=== PATIENT | male | born 1995 | race Caucasian/White ===

== ENCOUNTER 2018-01-30 10:37 | Emergency (ER) | payer OTHER ==
--- NOTE | 2018-01-30 11:35 | EDPHY ---
H & P Stated Complaint: swelling eyes and rash to genitals/[place] Time Seen by Provider: 01/30/18 11:17 HPI/ROS: CHIEF COMPLAINT: Allergic reaction HISTORY OF PRESENT ILLNESS: 22-year-old male presents with an itchy rash and swelling. He is visiting from out of town and this morning he awoke with an itchy rash and swelling. Yesterday he was on the [place] path, but was not in the weeds/grass. Last night he had some itchiness, but no rash. He awoke this morning with eyelid swelling and an itchy diffuse rash. Also has swelling and rash to groin. No shortness of breath or dizziness. REVIEW OF SYSTEMS: complete 10 point ROS negative except at noted in the HPI - Personal History Current Tetanus/Diphtheria Vaccine: Yes - Medical/Surgical History Hx Asthma: No Hx Chronic Respiratory Disease: No Hx Diabetes: No Hx Cardiac Disease: No Hx Renal Disease: No Hx Cirrhosis: No Hx Alcoholism: No Hx HIV/AIDS: No Hx Splenectomy or Spleen Trauma: No Other PMH: denies - Social History Smoking Status: Never smoked Alcohol Use: Sober - Physical Exam Exam: General Appearance: Alert, pleasant Eyes: Pupils equal and round, bilateral periorbital swelling ENT, Mouth: Mucous membranes moist, no oral swelling Neck: Normal inspection, no stridor Respiratory: Lungs are clear to auscultation, no wheezing Cardiovascular: Regular rate and rhythm Genitourinary: Scrotal swelling, rash over scrotum and groin Neurological: A&O, nonfocal, normal gait Skin: patchy erythema, some macules, mainly confluent right facial, lower abd, groin, no rash on the lower extremities Extremities: No swelling Psychiatric: Mood and affect normal Constitutional: Initial Vital Signs Temperature (C) 36.8 C 01/30/18 10:41 Heart Rate 88 01/30/18 10:41 Respiratory Rate 18 01/30/18 10:41 Blood Pressure 114/82 H 01/30/18 10:41 O2 Sat (%) 96 01/30/18 10:41 O2 Delivery Mode Room Air Allergies/Adverse Reactions: No Known Allergies Allergy (Unverified 01/30/18 11:33) Home Medications: Medication Instructions Recorded predniSONE 60 mg PO DAILY #15 tab 01/30/18 Medical Decision Making ED Course/Re-evaluation: This pt presents with contact dermatitis. Benadryl and prednisone given. Warning signs discussed, will return for worsening sx, any concerns. Differential Diagnosis: Differential diagnosis includes though it is not limited to laryngeal edema, bronchospasm, hypotension, angioedema. - Data Points Medications Given: Discontinued Medications Diphenhydramine HCl (Benadryl) 25 mg PO EDNOW ONE Stop: 01/30/18 11:39 Last Admin: 01/30/18 11:50 Dose: 25 mg Diphenhydramine HCl (Benadryl) 50 mg PO EDNOW ONE Stop: 01/30/18 11:52 Last Admin: 01/30/18 11:54 Dose: 25 mg Prednisone (Prednisone) 60 mg PO EDNOW ONE Stop: 01/30/18 11:38 Last Admin: 01/30/18 11:50 Dose: 60 mg Departure - Departure Disposition: Home, Routine, Self-Care Clinical Impression: Contact dermatitis Qualifiers: Contact dermatitis type: allergic Contact dermatitis trigger: unspecified trigger Qualified Code(s): L23.9 - Allergic contact dermatitis, unspecified cause Condition: Good Instructions: General Allergic Reaction (ED), Contact Dermatitis (ED) Additional Instructions: Take Claritin in the morning and Benadryl at night while the rash persists. Take prednisone as prescribed. Return for worsening symptoms or any concerns. Referrals: Dorie Samuels MD [[facility] [place]] - 2-3 days, if not improved Prescriptions: predniSONE 60 mg PO DAILY #15 tab
[2018-01-30] MEDS ORDERED: predniSONE 20 MG TAB PO ONE (11:37)
[2018-01-30] MEDS ORDERED: diphenhydrAMINE 25 MG CAP PO ONE ×3 (11:38→11:51)
[2018-01-30 11:54] VITALS: BP 138/77
== END 2018-01-30 11:55 | disposition home or self-care (01) ==
DX: L23.9 Allergic contact dermatitis, unspecified cause (principal)
CPT/HCPCS: J7512

== ENCOUNTER 2018-02-04 09:49 | Emergency (ER) | payer OTHER ==
--- NOTE | 2018-02-04 10:01 | EDPHY ---
H & P Time Seen by Provider: 02/04/18 10:00 HPI/ROS: CHIEF COMPLAINT: Continued rash HISTORY OF PRESENT ILLNESS: 22-year-old immunocompetent male seen emergency department originally 6 days ago after he awoke with itching rash in swelling. At that time he was started on prednisone, suspected contact dermatitis. He presents to the ER stating that he completed his course of prednisone but symptoms continue. They have not exacerbated. He denies new symptoms. He denies: Mucous membrane involvement, or pharyngeal involvement, GI complaints, ocular complaints, chest pain, dyspnea, nausea, vomiting, diarrhea, discoloration of urine, myalgias, arthralgias, fatigue, weakness, gait instability, photophobia REVIEW OF SYSTEMS: A ten point review of systems was performed and is negative with the exception of the items mentioned in the HPI PAST MEDICAL & SURGICAL HISTORY: No pertinent medical or surgical history SOCIAL HISTORY: Visiting from out of town. Nonsmoker. PHYSICAL EXAM (Prior to examination, patient consented to physical exam, hands were washed and my usual and customary physical exam procedures followed) 1) GENERAL: Well-developed, well-nourished, alert and oriented. Appears nontoxic smiling answering questions approached. 2) HEAD: Normocephalic, atraumatic 3) HEENT: Pupils equal, round, reactive to light bilaterally. Sclera anicteric. No injection. Nasopharynx, oropharynx, clear, no lesions. No sloughing of tissue. No apthous lesions. No signs of thrush. 4) NECK: Full range of motion, no meningeal signs. 5) LUNGS: Clear auscultation bilaterally, no wheezes, no rhonchi, no retractions. 6) HEART: Regular rate and rhythm, no murmur, no heave, no gallop. 7) ABDOMEN: No guarding, no rebound, no focal tenderness, negative McBurney's, negative Santana's, negative Rovsing's, negative peritoneal sign, 8) MUSCULOSKELETAL: Moving all extremities, no focal areas of tenderness, no obvious trauma. No peripheral edema or discoloration. 9) BACK: No CVA tenderness, no midline vertebral tenderness, no fluctuance, no step-off, no obvious trauma, no visual or palpable abnormality. 10) SKIN: The patient's lower extremities he has vesicular erythematous excoriated lesions with no signs of super infection. This appears to be consistent with a contact dermatitis. On the patient's abdomen and prakash- genitalia region, sparing his penis and scrotum and perineum, he has a fine sandpaper erythematous rash. No palpable purpura. No nodules. No bullae. Brisk capillary refill in digits of hands and feet with normal coloration, normal temperature. 11) Psychiatric: Patient is oriented X 3, there is no agitation. DIFFERENTIAL DIAGNOSIS: In no particular include but limited to contact dermatitis, urticaria, vasculitis - Medical/Surgical History Hx Asthma: No Hx Chronic Respiratory Disease: No Hx Diabetes: No Hx Cardiac Disease: No Hx Renal Disease: No Hx Cirrhosis: No Hx Alcoholism: No Hx HIV/AIDS: No Hx Splenectomy or Spleen Trauma: No Other PMH: denies - Social History Smoking Status: Never smoked Constitutional: Initial Vital Signs Temperature (C) 36.6 C 02/04/18 10:00 Heart Rate 84 02/04/18 10:00 Respiratory Rate 18 02/04/18 10:00 Blood Pressure 147/84 H 02/04/18 10:00 O2 Sat (%) 96 02/04/18 10:00 O2 Delivery Mode Room Air Allergies/Adverse Reactions: No Known Allergies Allergy (Verified 02/04/18 10:03) Home Medications: Medication Instructions Recorded predniSONE 60 mg PO DAILY #15 tab 01/30/18 Famotidine [Pepcid] 40 mg PO BID #6 tablet 02/04/18 diphenhydrAMINE [Benadryl 25 MG 25 mg PO Q6 #12 tab 02/04/18 (*)] predniSONE [Prednisone] 20 mg PO DAILY #16 tablet 02/04/18 Medical Decision Making ED Course/Re-evaluation: 10:15 a.m.: I reviewed the patient's old medical records including his emergency department visit dated 01/30/2018. He has continued symptoms which is not been exacerbated. He has no mucous membrane involvement, no GI complaints. Will administer H1 H2 blockers, Solu-Medrol, IV fluids, check basic laboratory studies. 10:50 a.m.: Elevated H&H, elevated BUN to creatinine ratio of 23. Suspect volume depletion. Continuing IV hydration. 12:20 p.m.: Re-evaluation. Symptoms remain partially improved. Reviewed laboratory studies with him. Doubt HSP, doubt anaphylaxis, doubt infectious pathology such as cellulitis. He has no signs super infection. At this time I do not think that further diagnostic studies are indicated from the emergency department. We discussed the multiple possible etiologies for symptoms and we discussed some of the diagnostic challenges associated with this. I recommended prednisone, recommended followup with Dr Muriel Rangel. Given usual and customary discharge precautions instructions. He feels comfortable being discharged. All questions and concerns addressed by myself. I saw this patient independently based on established practice protocols. Care of patient under supervision of secondary supervising physician Dr Hermelindo Troncoso with whom I discussed case. - Data Points Laboratory Results: Laboratory Results 02/04/18 10:23 02/04/18 10:23 02/04/18 02/04/18 10:23 10:23 WBC 9.12 10^3/uL 10^3/uL (3.80-9.50) RBC 5.87 10^6/uL 10^6/uL (4.40-6.38) Hgb 18.5 g/dL H g/dL (13.7-17.5) Hct 52.8 % H % (40.0-51.0) MCV 89.9 fL fL (81.5-99.8) MCH 31.5 pg pg (27.9-34.1) MCHC 35.0 g/dL g/dL (32.4-36.7) RDW 12.5 % % (11.5-15.2) Plt Count 236 10^3/uL 10^3/uL (150-400) MPV 9.5 fL fL (8.7-11.7) Neut % (Auto) 67.8 % % (39.3-74.2) Lymph % (Auto) 17.2 % % (15.0-45.0) [place] % (Auto) 7.2 % % (4.5-13.0) Eos % (Auto) 7.2 % % (0.6-7.6) Baso % (Auto) 0.3 % % (0.3-1.7) Nucleat RBC Rel Count 0.0 % % (0.0-0.2) Absolute Neuts (auto) 6.17 10^3/uL 10^3/uL (1.70-6.50) Absolute Lymphs (auto) 1.57 10^3/uL 10^3/uL (1.00-3.00) Absolute Monos (auto) 0.66 10^3/uL 10^3/uL (0.30-0.80) Absolute Eos (auto) 0.66 10^3/uL H 10^3/uL (0.03-0.40) Absolute Basos (auto) 0.03 10^3/uL 10^3/uL (0.02-0.10) Absolute Nucleated RBC 0.00 10^3/uL 10^3/uL (0-0.01) Immature Gran % 0.3 % % (0.0-1.1) Immature Gran # 0.03 10^3/uL 10^3/uL (0.00-0.10) Sodium 144 mEq/L mEq/L (135-145) Potassium 4.0 mEq/L mEq/L (3.3-5.0) Chloride 104 mEq/L mEq/L (97-110) Carbon Dioxide 25 mEq/l mEq/l (22-31) Anion Gap 15 mEq/L mEq/L (8-16) BUN 26 mg/dL H mg/dL (7-23) Creatinine 1.1 mg/dL mg/dL (0.7-1.3) Estimated GFR > 60 Glucose 72 mg/dL mg/dL (70-100) Calcium 9.7 mg/dL mg/dL (8.5-10.4) Medications Given: Discontinued Medications Diphenhydramine HCl (Benadryl Injection) 50 mg IVP EDNOW ONE Stop: 02/04/18 10:15 Last Admin: 02/04/18 10:37 Dose: 50 mg Sodium Chloride (Ns) 1,000 mls @ 0 mls/hr IV ONCE ONE PRN Reason: Wide Open Stop: 02/04/18 10:15 Last Admin: 02/04/18 10:36 Dose: 1,000 mls Methylprednisolone Sodium Succinate (Solu-Medrol) 125 mg IVP EDNOW ONE Stop: 02/04/18 10:15 Last Admin: 02/04/18 10:37 Dose: 125 mg Ondansetron HCl (Zofran) 4 mg IVP EDNOW ONE Stop: 02/04/18 11:16 Last Admin: 02/04/18 11:19 Dose: 4 mg Ranitidine HCl (Zantac) 50 mg IVP EDNOW ONE Stop: 02/04/18 10:15 Last Admin: 02/04/18 10:37 Dose: 50 mg Departure - Departure Disposition: Home, Routine, Self-Care Clinical Impression: Rash Condition: Good Instructions: Acute Rash (ED) Additional Instructions: Return to the ER if you develop symptoms such as fevers, body aches, joint pain , change in urine color or output, or any other symptoms that concern you. Referrals: Muriel Rangel MD [[facility] [place] Primary Care Provider] - 2-3 days, call for appt. (Dr. Muriel Rangel is an [facility]) Prescriptions: diphenhydrAMINE [Benadryl 25 MG (*)] 25 mg PO Q6 #12 tab Famotidine [Pepcid] 40 mg PO BID #6 tablet predniSONE [Prednisone] 20 mg PO DAILY #16 tablet
[2018-02-04] MEDS ORDERED: NS 1,000 ML IV ONE (10:14)
[2018-02-04] MEDS ORDERED: methylPREDNISolone SOD SUCC 125 MG/2 ML VIAL IVP ONE (10:14)
[2018-02-04] MEDS ORDERED: RANITIDINE 50 MG/2 ML VIAL IVP ONE (10:14)
[2018-02-04 10:33] LABS: PLATELET COUNT 236 10^3/uL (150-400)
[2018-02-04] MEDS ORDERED: ONDANSETRON 4 MG/2 ML VIAL IVP ONE (11:15)
[2018-02-04] MEDS ORDERED: ONDANSETRON 4 MG/2 ML VIAL ONE (11:16)
[2018-02-04 12:57] VITALS: BP 131/84
== END 2018-02-04 12:57 | disposition home or self-care (01) ==
DX: R21 Rash and other nonspecific skin eruption (principal)
CPT/HCPCS: 96374; J1200; J2405; J2780; J2930